=== PATIENT | female | born 1955 | race Caucasian/White ===

== ENCOUNTER 2016-12-16 11:09 | Emergency (ER) | payer BC ==
--- NOTE | 2016-12-20 16:46 | ER ---
ADMIT: 12/16/2016 RM/LOC: ER [facility] MR#: [id number] [address] [id number] [place] [address] Emergency Room Report SEX: F AGE: 61 : 1955 DATE: 12/16/2016 TIME: 1109 hours. This is a full trauma, called in essentially just prior to arrival. CHIEF COMPLAINT: Decreased level of consciousness after fall. HISTORY OF PRESENT ILLNESS: A 61-year-old white female with known Melvin's chorea and seizure disorder coming in with decreased level of consciousness after falling and hitting her head. Evidently, sometimes her gait is not stable and she fell and hit her head. She does not appear to be on a blood thinner, but just Dilantin and we do believe Depakote for her seizure disorder. She is a non historian at this time and her GCS was definitely decreased, 8 and below, so upon arrival we decided to intubate her right off the bat. PAST MEDICAL HISTORY: Significant disease, Birmingham's disease and seizure disorder. MEDICATIONS: 1. Depakote. 2. Dilantin. ALLERGIES: NONE KNOWN. FAMILY AND SOCIAL HISTORY: . was there after she had fallen, he called the ambulance. REVIEW OF SYSTEMS: Unobtainable. PHYSICAL EXAM: GENERAL: Does have continued bleeding in right side of her scalp. She has a small laceration there that is causing this. EENT: Negative. NECK: Really no obvious deformity. RESPIRATORY: No retracting. HEART: Regular rate and rhythm. GI: Abdomen is nontender, no rebound, guarding, rigidity or organomegaly. SKIN: Warm, pink and dry. EXTREMITIES: Range of motion is grossly intact in the upper and lower extremities. WIRELESS SALES REPRESENTATIVE: She is obtunded. At this time, I do not believe that she is seizing. Otherwise motor and sensory, I do not see anything acute though her Birmingham's chorea is not really obvious at this time. LABORATORY DATA: Lactate was 4.6, that could be from decreased circulation. Drug screen is negative. She is O positive. INR 1.46. Hemoglobin 11.6, hematocrit 34. Glucose 174. Blood gas; pH 7.4, pCO2 of 36, PO2 of 497 that was on oxygen and 100% bagging. Urine, she has a few rbc's noted, but not ADMIT: 12/16/2016 RM/LOC: ER [facility] MR#: [id number] [address] [address] [place] [address] Emergency Room Report SEX: F AGE: 61 : 1955 infected. White count 7.5. EKG nothing acute. 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 I do not have an old one to compare with nor did the radiologist. DIAGNOSES: 1. Acute subdural with midline shift. 2. Birmingham's chorea. 3. Seizure disorder. 4. Unsteady gait. 5. Skull fracture with subsequent subdural. TREATMENT: Dr. Bernal did look at the wound right off the bat after I intubated the patient with rocuronium 50 and etomidate 10, this was done without problems. Wanted to protect her airway plus she was obtunded. He used goldie and I refer you to his note to close the wound. We had also CT her neck that was negative. We did a CTA of her head as well and that was essentially negative, I refer you to the official reports. I did talk to the family as well as Dr. Bernal. I spoke with Dr. Faulkner as well as Dr. Bernal did and that she was transferred by ambulance by [facility] quickly to [facility]. She received 1 g/kg of mannitol prior to leaving and in transport too. CONDITION ON DISCHARGE: Critical. Jason Thompson MD/ blas JOB #: [id number] CC: Jason Thompson MD, Attending Physician Yesica Shipman MD, Family Physician
--- NOTE | 2017-01-10 11:48 | CO ---
ADMIT: 12/16/2016 RM/LOC: [facility] MR#: [id number] [address] [address] [place] [address] Consultation SEX: F AGE: 61 : 1955 DATE OF CONSULTATION: 12/16/2016 ATTENDING PHYSICIAN: Jason Thompson MD CONSULTING PHYSICIAN: Hamilton Bernal MD HISTORY OF PRESENT ILLNESS: The patient is a 61-year-old female, who was paged out as a full trauma after reportedly sustaining a fall and hitting her head after getting back [place] [facility]. The patient has a history of Martinsburg's chorea and seizure disorders, on antiseizure medications, is not apparently on any type of anticoagulants. This was an unwitnessed fall. She was found with some apparently indiscernible sounds, was moving extremities, verbally not making much sense. She was brought to [facility] where she was immediately intubated. When I arrived, she had received medication prior to intubation, but my understanding, the GCS was at least below 8 upon finding her on arrival to the emergency room. There was a small laceration to the right posterolateral aspect of her scalp. Her pupils were dilated and nonreactive. There was no blood from her ears. PAST MEDICAL HISTORY: Includes Martinsburg's disease and seizure disorder. MEDICATIONS: Include: 1. Dilantin. 2. Depakote. ALLERGIES: NO ALLERGIES ARE REPORTED. SOCIAL HISTORY: The patient is . is the one who found her after she had fell. REVIEW OF SYSTEMS: Unobtainable. PHYSICAL EXAMINATION: HEENT: She had a laceration to the right posterolateral aspect of her scalp about 3 to 4 cm in a convex fashion. On examining this area, there was no bony fracture or step-off noted. Her pupils were dilated and nonreactive. TMs were clear. LUNGS: Clear. EXTREMITIES: There was no upper or lower extremity step-off. ABDOMEN: Soft and nondistended. There was no pelvic instability. The patient immediately gotten a CT scan of the head and neck during her trauma workup where there was obvious evidence of chronic subdural bleeds and more of an acute parenchymal subdural bleed as well with definitely a midline shift. ASSESSMENT AND PLAN: The patient is a 61-year-old female with Martinsburg's disease with seizure disorder, sustaining a fall. I had repaired her scalp laceration after shaving the hair and using interrupted skin goldie prior to ADMIT: 12/16/2016 RM/LOC: [facility] MR#: [id number] [address] [place] [id number] FAN, [place] [address] Consultation SEX: F AGE: 61 : [address] Charles Kaba was unavailable this day for call. Dr. Faulkner was scheduled for coverage, and I made contact with him in [place], described the situation and accepted the patient in transfer. I did have a discussion with the family prior to transfer not knowing the patient's baseline status prior to her fall. was obviously expectedly distressed and unable to make any type of end of life decisions at this point in time, so we went ahead and carried out arranging transfer. Dr. Faulkner was kind enough to accept and are going to work on getting the x-rays, Tele-Raded to him. So we could evaluate those prior to the patient's arrival. I spent about 1 hour of critical care time with the patient in the emergency room, the CT scanner, time with family and with the referring physician. Hamilton Bernal MD/ blas JOB #: [id number] CC: Jason Thompson MD, Attending Physician Yesica Shipman MD, Family Physician
== END 2016-12-16 12:45 ==
LOC: ER 11:09
PROC: 0HQ0XZZ Repair Scalp Skin, External Approach (ICD-10-PCS; principal; 2016-12-16)
PROC: 0BH17EZ Insertion of Endotracheal Airway into Trachea, Via Natural or Artificial Opening (ICD-10-PCS; principal; 2016-12-16)
PROC: 0T9B70Z Drainage of Bladder with Drainage Device, Via Natural or Artificial Opening (ICD-10-PCS; principal; 2016-12-16)
DX: S02.119A Unspecified fracture of occiput, initial encounter for closed fracture (principal); S06.6X9A Traumatic subarachnoid hemorrhage with loss of consciousness of unspecified duration, initial encounter; S06.1X9A Traumatic cerebral edema with loss of consciousness of unspecified duration, initial encounter; S01.01XA Laceration without foreign body of scalp, initial encounter; G40.909 Epilepsy, unspecified, not intractable, without status epilepticus; G10 Huntington's disease; R26.81 Unsteadiness on feet; Z79.82 Long term (current) use of aspirin; Z79.899 Other long term (current) drug therapy; W18.30XA Fall on same level, unspecified, initial encounter; Y92.22 Religious institution as the place of occurrence of the external cause